=== PATIENT | female | born 1965 | race Caucasian/White ===

== ENCOUNTER 2021-05-14 14:58 | Outpatient (REF) | payer OTHER, SELFPAY ==
--- NOTE | ~2021-05-14 | MM_ITS ---
EXAMINATION: MM SCREENING DIGITAL BREAST TOMOSYNTHESIS, BILATERAL CLINICAL INFORMATION: Screening. Asymptomatic. The lifetime risk of breast cancer based on the Tyrer-Cuzick Model is 15%. COMPARISON: Mammography: 05/08/2020, 03/10/2019, 12/04/2017 TECHNIQUE: Digital breast tomosynthesis is performed in both the craniocaudal and mediolateral oblique views along with computer-aided detection (CAD). Synthesized 2D images are generated from the tomosynthesis. FINDINGS: The breasts are extremely dense, which lowers the sensitivity of mammography (ACR BI-RADS breast composition Category d). There are no significant masses, abnormal calcifications, or other abnormalities. No developing density. Skin contours are smooth. No significant changes. MM/MM tomosynthesis screening BI IMPRESSION: No mammographic evidence of malignancy. ASSESSMENT: BI-RADS 1: Negative RECOMMENDATION: Routine annual mammography screening. This patient's information was entered into a reminder system with a target due date for their next mammogram.
== END 2021-05-14 14:59 | disposition home or self-care (01) ==
LOC: HO.MAMMO 14:58
PROVIDERS: Visit Provider Internal Medicine
DX: Z12.31 Encounter for screening mammogram for malignant neoplasm of breast (principal)
CPT/HCPCS: 77063; 77067

== ENCOUNTER 2022-05-18 13:54 | Outpatient (REF) | payer OTHER, SELFPAY ==
--- NOTE | ~2022-05-18 | MM_ITS ---
EXAMINATION: MM SCREENING DIGITAL BREAST TOMOSYNTHESIS, BILATERAL CLINICAL INFORMATION: Screening. Asymptomatic. The lifetime risk of breast cancer based on the Tyrer-Cuzick Model is 11%. COMPARISON: Mammography: 05/14/2021, 05/08/2020, 03/10/2019 TECHNIQUE: Digital breast tomosynthesis is performed in both the craniocaudal and mediolateral oblique views along with computer-aided detection (CAD). Synthesized 2D images are generated from the tomosynthesis. FINDINGS: The breasts are extremely dense, which lowers the sensitivity of mammography (ACR BI-RADS breast composition Category d). There are no significant masses, abnormal calcifications, or other abnormalities. Parenchymal pattern is similar to prior studies. No significant changes. The axilla are unremarkable. MM/MM tomosynthesis screening BI IMPRESSION: No mammographic evidence of malignancy. ASSESSMENT: BI-RADS 1: Negative RECOMMENDATION: Routine annual mammography screening. This patient's information was entered into a reminder system with a target due date for their next mammogram.
== END 2022-05-18 13:55 | disposition home or self-care (01) ==
LOC: HO.MAMMO 13:54
PROVIDERS: Visit Provider Internal Medicine
DX: Z12.31 Encounter for screening mammogram for malignant neoplasm of breast (principal)
CPT/HCPCS: 77063; 77067

== ENCOUNTER 2022-08-25 08:23 | Outpatient (REF) | payer OTHER, SELFPAY ==
[2022-08-25 11:28] LABS: MANUAL DIFF FLAG NO
[2022-08-25 11:50] LABS: Basophils Absolute Auto 0.1 X10*3/uL (0.0-0.2); Basophils Percent Auto 1.4 % (0-2); Eosinophils Absolute Auto 0.3 X10*3/uL (0.0-0.4); Eosinophils Percent Auto 4.2 % (0-4); Hematocrit 44.3 % (37.0-47.0); Hemoglobin 14.5 g/dl (12.0-16.0); Imm Gran Abs Auto 0.02 X10*3/uL (0.00-0.03); Imm Gran Pct Auto 0.3 % (0.0-0.4); Lymphocytes Absolute Auto 2.4 X10*3/uL (1.2-4.9); Lymphocytes Percent Auto 34.6 % (20-40); Mean Corpuscular HGB Conc 32.7 g/dl (31.0-35.0); Mean Corpuscular Hemoglobin 29.7 pg (27.0-33.0); Mean Corpuscular Volume 90.6 fL (80.0-98.0); Mean Platelet Volume 12.1 fL (9.4-12.3); Monocytes Absolute Auto 0.7 X10*3/uL (0.1-1.2); Monocytes Percent Auto 10.1 % (2-11); Neutrophils Absolute Auto 3.4 x10*3/uL (2.0-8.3); Neutrophils Percent Auto 49.4 % (45-73); Platelet Count 202 X10*3/uL (160-400); Red Blood Count 4.89 X10*6/uL (4.20-5.50); Red Cell Distribution Width 12.5 % (11.0-16.0)
[2022-08-25 12:09] LABS: Alanine Aminotransferase 50 U/L (0-31); Albumin Level 4.2 g/dL (3.5-5.0); Alkaline Phosphatase 90 U/L (39-117); Anion Gap 14 (12-20); Aspartate Amino Transferase 29 U/L (5-31); Bilirubin Total 0.8 mg/dL (0.0-1.0); Blood Urea Nitrogen 14 mg/dL (9-16); Calcium 9.5 mg/dL (8.4-10.2); Carbon Dioxide 27 mmol/L (22-29); Chloride 104 mmol/L (96-108); Cholesterol 167 mg/dL; Estimated Glomerular Filt Rate > 60; Glucose Fasting 88 mg/dL (60-99); HDL Cholesterol 54 mg/dL; LDL Cholesterol Calculated 93 mg/dl; Potassium 4.1 mmol/L (3.3-5.1); Sodium 141 mmol/L (135-145); Total Protein 6.8 g/dL (6.5-8.0); Triglycerides 100 mg/dL
[2022-08-25 12:16] LABS: Appearance Urine Clear; Color Urine Yellow; Glucose Urine UA Negative (Negative); Leukocyte Esterase Urine Small (1+) (Negative); Nitrite Urine Negative (Negative); UMIC TRIGGER UA YES; Urine Blood Negative (Negative); Urine Ketones Negative (Negative); Urine Protein Negative (Neg-Trace)
[2022-08-25 12:27] LABS: Bacteria Urine None Seen (None Seen); Hyaline Casts Urine 0-2 /LPF (0-2); RBC Urine 0-2 /HPF (0-2); Squamous Epithelial Cell Urine 0-2 /HPF (0-2)
[2022-08-25 12:32] LABS: Vitamin D 25-OH Total 55.2 ng/mL (>30)
== END 2022-08-25 08:24 | disposition home or self-care (01) ==
LOC: HO.HMGCLDS 08:23
PROVIDERS: PCP Internal Medicine; Visit Provider Internal Medicine
DX: Z00.00 Encounter for general adult medical examination without abnormal findings (principal); Z78.0 Asymptomatic menopausal state
CPT/HCPCS: 36415; 80053; 80061; 81001; 82306; 84443; 85025

== ENCOUNTER 2022-09-01 11:57 | Outpatient (REF) | payer OTHER, SELFPAY ==
--- NOTE | ~2022-09-01 | XR_ITS ---
EXAMINATION: XR HIP, LEFT CLINICAL INFORMATION: M25.552 - Pain in left hip COMPARISON: None TECHNIQUE: Two views of the left hip. FINDINGS: No fracture, dislocation, destructive process. No hip joint narrowing or erosive change or chondrocalcinosis. Normal bony mineralization. There is minor spurring from the superior medial and superior lateral iliac crest. The SI joints and pubis are unremarkable. XR/XR hip LT min 2V IMPRESSION: No hip joint narrowing or erosive change.
== END 2022-09-01 11:58 | disposition home or self-care (01) ==
LOC: HO.HMGCX 11:57
PROVIDERS: PCP Internal Medicine; Visit Provider Internal Medicine
DX: M25.552 Pain in left hip (principal)
CPT/HCPCS: 73502

== ENCOUNTER 2022-10-13 10:00 | Outpatient (RCR) | payer OTHER, SELFPAY ==
--- NOTE | 2022-09-21 16:30 | MHC.PT.EP ---
[facility] [place] Office [place] Office [place] Office [address] Viral Turpin [address] [phone] F: [phone] F: [phone] F: [phone] F: [phone] Physical Therapy Plan of Care Date of Evaluation: Date of Surgery: N/A Diagnosis: pain in left hip (RC) Assessment: pt is a 57 y/o female presenting to physical therapy w/ referring diagnosis of pain in left hip. Impairments include pain, decreased range of motion, decreased strength, impaired functional mobility, impaired postural awareness, and altered ambulation mechanics. pt is a good candidate for skilled PT due to age, potential remediation of impairments, typical disease/condition progression and prognosis, comorbidities, and motivation. pt would benefit from skilled PT intervention to provide a tailored strengthening and stretching exercise program, functional training, gait training, postural re-training, neuromuscular re-education, modalities as needed for pain, equipment safety demonstration. Frequency and Duration: The patient will be seen 2x/wk for 4 wks Short Term Goals: pt will be I w/ HEP to promote self-management of condition. pt will improve L hip abduction strength by 1 MMT grade to promote neutral hips with transfers/ambulation. Fci Goals: pt will improve lumbar flexion to 100% to promote ease in lower body dressing. pt will report <2/10 L hip pain w/ w/ crossing leg to promote full return to donning/doffing socks/shoes. Treatment Plan: Modalities to reduce pain, spasms and effusion. Manual therapy to restore motion and function. Therapeutic exercise to improve strength and flexibility. Neuromuscular re-education for posture and balance. Therapeutic activities to return to functional activities of daily living. Electronically signed by: Rose Michaels PT, DPT Please sign and return to therapist. Thank you for your referral.
--- NOTE | 2022-11-04 16:50 | MHC.PT.DC ---
[facility] [place] Office [place] Office [place] Office [address] Viral Turpin [address] [phone] F: [phone] F: [phone] F: [phone] F: [phone] Physical Therapy Discharge Report Diagnosis: pain in left hip (RC) Date of Surgery: N/A Date of Evaluation: 09/21/22 Date of Discharge: 11/04/22 Treatments to Date: 4 Cancellations to Date: 0 No Shows to Date: 0 Discharge Status: Improved Function Independent with HEP Discharge Summary: pt stated she is still experiencing deficit in ROM. She denies pain just difficulty performing hip flexion, abduction, and external rotation combo. pt shown self-hip mobilizations as she has only progressed a little w/ stretching to this point. pt felt strong pulling sensation but no pain w/ mobilizations. She was instructed in proper band securement for safety. pt stated she would like to continue w/ these exercises on her own. This therapist will keep the her chart open for 2-3 weeks. If I do not hear from here in that time I will D/C her chart. Electronically signed by: Rose Michaels PT, DPT Please sign and return to therapist. Thank you for your referral.
== END 2022-11-04 16:50 | disposition home or self-care (01) ==
LOC: HO.PT 10:00
PROVIDERS: PCP Internal Medicine; Visit Provider Internal Medicine
DX: M25.552 Pain in left hip (principal)
CPT/HCPCS: 97110; 97112; 97162

== ENCOUNTER 2023-05-20 13:59 | Outpatient (REF) | payer OTHER, SELFPAY ==
--- NOTE | ~2023-05-20 | MM_ITS ---
EXAMINATION: MM SCREENING DIGITAL BREAST TOMOSYNTHESIS, BILATERAL CLINICAL INFORMATION: Screening. Asymptomatic. The lifetime risk of breast cancer based on the Tyrer-Cuzick Model is 15%. COMPARISON: Mammography: This study is compared with prior exams dating back to 2019. TECHNIQUE: Digital breast tomosynthesis is performed in both the craniocaudal and mediolateral oblique views along with computer-aided detection (CAD). Synthesized 2D images are generated from the tomosynthesis. FINDINGS: The breasts are heterogeneously dense, which may obscure small masses (ACR BI-RADS breast composition Category c). There are no significant masses, abnormal calcifications, or other abnormalities. MM/MM tomosynthesis screening BI IMPRESSION: No mammographic evidence of malignancy. ASSESSMENT: BI-RADS BI-RADS 1 - Negative RECOMMENDATION: Routine annual mammography screening. 1 year F/U This examination should not preclude the clinical evaluation of a suspicious palpable abnormality. This patient's information was entered into a reminder system with a target due date for their next mammogram.
== END 2023-05-20 14:00 | disposition home or self-care (01) ==
LOC: HO.MAMMO 13:59
PROVIDERS: PCP Internal Medicine; Visit Provider Obstetrics & Gynecology
DX: Z12.31 Encounter for screening mammogram for malignant neoplasm of breast (principal)
CPT/HCPCS: 77063; 77067

== ENCOUNTER → 2023-05-20 14:15 | Outpatient (BNV) | payer OTHER, SELFPAY | PROVIDERS: PCP Internal Medicine; Visit Provider Radiology Diagnostic Radiology | DX: Z12.31 Encounter for screening mammogram for malignant neoplasm of breast (principal) | CPT/HCPCS: 77063; 77067 ==

== ENCOUNTER 2023-09-02 10:18 | Outpatient (AMB) | payer OTHER, SELFPAY ==
[2023-09-02 10:21] VITALS: BP 112/64; PULSE 92; O2SAT 95; BMI 21.8
--- NOTE | 2023-09-02 10:21 | MHC.PC.OV ---
Vital Signs 09/02/23 10:21 Height 4 ft 11 in Weight 108 lb 2 oz BMI 21.8 BP 112/64 Blood Pressure Location Lt brachial Position Sitting Pulse 92 Pulse Source Pulse Oximeter Pulse Oximetry (%) 95 Oxygen Delivery Method Room Air Intake Visit Reasons: Annual PE Intake Note: pt is here for annual exam Deputy Grand Jury Required: No Accompanied by: Self / Same As Patient Allergies environmental Allergy (Mild, Uncoded 09/02/23 10:21) itchy, watery eyes Medication List - Last Reconciled 09/02/23 by Alia Salazar MD ascorbic acid (vitamin C) 250 mg PO DAILY calcium carbonate (Antacid Ultra Strength) 400 mg PO DAILY magnesium 250 mg PO DAILY multivitamin 1 tab PO DAILY rhubarb root extract (Estroven Complete Menopause Relief) mg PO vitamin B comp and C no.3 1 cap PO DAILY zinc 50 mg PO DAILY Tobacco use date assessed: 09/02/23 Dental Screening Dental Screen Date: 09/02/23 Did you have a dental visit in the last 12 months?: Yes Did you have a dental problem in the last 6 months where you did not have access to dental care?: No Was dental information given to patient?: Patient has dentist HPI Annual PE HPI Details Pt presents for PE. Pt c/o persistent nasal congestion for 3 weeks after URI. 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 1. Little interest or pleasure in doing things: not at all 2. Feeling down, depressed, or hopeless: not at all 3. Trouble falling or staying asleep, or sleeping too much: not at all 4. Feeling tired or having little energy: not at all 5. Poor appetite or overeating: not at all 6. Feeling bad about yourself - or that you are a failure or have let yourself or your family down: not at all 7. Trouble concentrating on things, such as reading the newspaper or watching television: not at all 8. Moving or speaking so slowly that other people could have noticed. Or the opposite - being so fidgety or restless that you have been moving around a lot more than usual: not at all 9. Thoughts that you would be better off or of hurting yourself in some way: not at all Total score: 0 Depression Screening Interpretation: Negative Depression Screening Done: Yes 16983 - PHQ-9 Billing: Yes Source: Developed by Drs. David Blue, Janay Rosas, Casa Poe and colleagues, with an educational radha from [employer]. Thrive Questionnaire Date Thrive assessed: 09/02/23 I am a: Patient What is your living situation today?: I have a steady place to live Within the past 12 months, did the food you bought not last and you didn't have the money to get more?: Never true Within the past 12 months, did you worry whether your food would run out before you got money to buy more?: Never true Do you have trouble paying for medicines?: No Do you have trouble getting transportation to medical appointments?: No Do you have trouble paying your heating and electricity bill?: No Do you have trouble taking care of your child, family member or friend?: No Do you have trouble with day-to-day activities such as bathing, preparing meals, shopping, managing finances, etc.?: No Are you currently unemployed and looking for a job?: No Are you interested in more education?: No Please select the resources that you would like help with: None Currently or been in a relationship where the following occur: no concerns reported SHAE-7 AMB Questionnaire SHAE-7 Date SHAE - 7 assessed: 09/02/23 Feeling nervous, anxious, or on edge: 0 = Not at all Not being able to stop or control worryin = Not at all Worrying too much about different things: 0 = Not at all Trouble relaxin = Not at all Being so restless that it is hard to sit still: 0 = Not at all Becoming easily annoyed or irritable: 0 = Not at all Feeling afraid as if something awful might happen: 0 = Not at all Total SHAE-7 score (0-4 normal; 5-9 mild; 10-14 moderate; 15-21 severe): 0 Source: Developed by Drs. David Blue, Janay Rosas, Casa Poe and colleagues, with an educational radha from [employer]. SHAE-7 Assessment Billing SHAE-7 Assessment Tool: SHAE-7 Assessment 85769 Review of Systems Const All systems reviewed & are unremarkable except as noted in HPI and below Reports no additional complaints Eyes Reports no additional complaints ENT Reports no additional complaints Card Reports no additional complaints Resp Reports no additional complaints GI Reports no additional complaints Reports no additional complaints Physical exam (Primary Care) Vital Signs: Last Vital Signs Pulse 92 09/02/23 10:21 BP 112/64 09/02/23 10:21 Pulse Ox 95 09/02/23 10:21 Oxygen Delivery Method Room Air 09/02/23 10:21 BMI result Body Mass Index 21.8 Tobacco/Smoking Status: Tobacco use Status Tobacco use date assessed 09/02/23 09/02/23 10:22 Patient Tobacco Use Status Never used Tobacco 09/02/23 10:22 e-Cigarette/Vaping Use Never Used 09/02/23 10:22 PHQ-9: PHQ-9 Score PHQ-9: Total score 0 09/02/23 15:07 Depression Screening Interpretation: Negative Thrive Assessment: Date of Thrive Assessment Date Thrive assessed 09/02/23 09/02/23 10:24 Currently or been in a relationship where the following occur: no concerns reported Const General: no acute distress HENMT Ears: hearing grossly normal bilaterally Face and sinus: Yes normal facial exam Mouth: Normal oral and palatal mucosa present Eyes General: appearance normal, both eyes and all related structures Resp Effort & Inspection: normal respiratory effort Auscultation: clear to auscultation bilaterally Cardio Rhythm: regular rhythm Heart sounds: S1 normal heart sound present and S2 normal heart sound present GI Inspection: Yes normal to inspection Palpation (GI): Soft to palpation Percussion: Yes normal to percussion Auscultation: normal bowel sounds Assessment and Plan Assessment & Plan (1) Annual physical exam: Code(s): Z00.00 - Encounter for general adult medical examination without abnormal findings Plan: well balanced diet, exercise, f/u with senior windows systems administrator for pelvic exam, started on HRT (2) Hx of mammogram: Comment: [facility] 2021 Code(s): Z92.89 - Personal history of other medical treatment (3) Hx of colonoscopy: Comment: normal at 50 Code(s): Z98.890 - Other specified postprocedural states Orders: Orders Lipid Panel Today Z00.00 - Encounter for general adult medical examination without abnormal findings, Z92.89 - Personal history of other medical treatment, Z98.890 - Other specified postprocedural states TSH reflex Free T4 Today Z00.00 - Encounter for general adult medical examination without abnormal findings, Z92.89 - Personal history of other medical treatment, Z98.890 - Other specified postprocedural states Complete Blood Count Auto Diff 365 Days Z00.00 - Encounter for general adult medical examination without abnormal findings Lipid Panel 365 Days Z00.00 - Encounter for general adult medical examination without abnormal findings TSH reflex Free T4 365 Days Z00.00 - Encounter for general adult medical examination without abnormal findings Comprehensive [place]. Panel Fast Today Z00.00 - Encounter for general adult medical examination without abnormal findings, Z92.89 - Personal history of other medical treatment, Z98.890 - Other specified postprocedural states Complete Blood Count Auto Diff Today Z00.00 - Encounter for general adult medical examination without abnormal findings, Z92.89 - Personal history of other medical treatment, Z98.890 - Other specified postprocedural states Comprehensive [place]. Panel Fast 365 Days Z00.00 - Encounter for general adult medical examination without abnormal findings Medications: New estradiol apply 1 patch for 3 days alternating with 1 patch for 4 days each week for 3 wks per 4-wk cycle 1 patch transdermal 2XW 8 ea 0RF Coding Level of Care Code Est Pt Prev Care 40-64y(90788) Diagnoses Annual physical exam Z00.00 Hx of mammogram Z92.89 Hx of colonoscopy Z98.890 Additional Codes SHAE-7 Assessment Billing - SHAE-7 Assessment Tool: SHAE-7 Assessment 36488 ([id number])
== END 2023-09-02 11:02 | disposition home or self-care (01) ==
PROVIDERS: Visit Provider Internal Medicine
DX: Z00.00 Encounter for general adult medical examination without abnormal findings (principal); Z92.89 Personal history of other medical treatment; Z98.890 Other specified postprocedural states
CPT/HCPCS: 99396

== ENCOUNTER 2023-09-06 09:01 | Outpatient (REF) | payer OTHER, SELFPAY ==
[2023-09-06 11:20] LABS: MANUAL DIFF FLAG NO
[2023-09-06 11:43] LABS: Basophils Absolute Auto 0.1 X10*3/uL (0.0-0.2); Basophils Percent Auto 1.6 % (0-2); Eosinophils Absolute Auto 0.4 X10*3/uL (0.0-0.4); Hematocrit 44.5 % (37.0-47.0); Hemoglobin 14.4 g/dl (12.0-16.0); Imm Gran Abs Auto 0.03 X10*3/uL (0.00-0.03); Imm Gran Pct Auto 0.4 % (0.0-0.4); Lymphocytes Absolute Auto 1.9 X10*3/uL (1.2-4.9); Lymphocytes Percent Auto 27.7 % (20-40); Mean Corpuscular HGB Conc 32.4 g/dl (31.0-35.0); Mean Corpuscular Hemoglobin 30.4 pg (27.0-33.0); Mean Corpuscular Volume 94.1 fL (80.0-98.0); Mean Platelet Volume 11.7 fL (9.4-12.3); Monocytes Absolute Auto 0.9 X10*3/uL (0.1-1.2); Monocytes Percent Auto 12.8 % (2-11); Neutrophils Absolute Auto 3.7 x10*3/uL (2.0-8.3); Neutrophils Percent Auto 52.5 % (45-73); Platelet Count 210 X10*3/uL (160-400); Red Blood Count 4.73 X10*6/uL (4.20-5.50); Red Cell Distribution Width 12.4 % (11.0-16.0)
[2023-09-06 12:20] LABS: Alanine Aminotransferase 19 U/L (0-31); Alkaline Phosphatase 76 U/L (39-117); Anion Gap 9 (12-20); Aspartate Amino Transferase 23 U/L (5-31); Bilirubin Total 0.9 mg/dL (0.0-1.0); Blood Urea Nitrogen 13 mg/dL (9-16); Calcium 8.9 mg/dL (8.4-10.2); Carbon Dioxide 29 mmol/L (22-29); Chloride 104 mmol/L (96-108); Cholesterol 152 mg/dL (<200); Estimated Glomerular Filt Rate > 60; Glucose Fasting 88 mg/dL (60-99); HDL Cholesterol 47 mg/dL (>40); LDL Cholesterol Calculated 87 mg/dL (<100); Potassium 4.3 mmol/L (3.3-5.1); Sodium 138 mmol/L (135-145); Total Protein 6.9 g/dL (6.5-8.0); Triglycerides 90 mg/dL (<150)
== END 2023-09-06 09:02 | disposition home or self-care (01) ==
LOC: HO.HMGCLDS 09:01
PROVIDERS: PCP Internal Medicine; Visit Provider Internal Medicine
DX: Z00.00 Encounter for general adult medical examination without abnormal findings (principal); Z92.89 Personal history of other medical treatment; Z98.890 Other specified postprocedural states
CPT/HCPCS: 36415; 80053; 80061; 84443; 85025

== ENCOUNTER 2023-09-07 11:32 | Outpatient (AMB) | payer OTHER, SELFPAY ==
[2023-09-07 12:48] VITALS: BP 108/62; PULSE 112; TEMP 38.1; O2SAT 97; BMI 21.8
--- NOTE | 2023-09-07 12:48 | MHC.OFFWIV ---
Intake Vital Signs 09/07/23 12:48 Height 4 ft 11 in Weight 108 lb BMI 21.8 BP 108/62 Blood Pressure Location Lt brachial Position Sitting Pulse 112 H Pulse Source Pulse Oximeter Temp 100.5 F H Temp Source Oral Pulse Oximetry (%) 97 Oxygen Delivery Method Room Air Intake Visit Reasons: EP, body aches, congestion (masked) Intake Note: Patient is here with symptoms of body aches, and congestion, with fever and chills. Patient Tobacco Use Status: Never used Tobacco Allergies environmental Allergy (Mild, Uncoded 09/07/23 13:48) itchy, watery eyes Do you need a note to return to daycare/school/sports/work: No HPI EP, body aches, congestion (masked) HPI Details Patient presents for a sick visit. Reporting symptoms of sinus congestion, sore throat and difficulty swallowing. Low-grade fever. No family member is sick. No recent travel. Patient reports symptoms of malaise and fatigue. 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 Housing: House Patient Tobacco Use Status: Never used Tobacco e-Cigarette/Vaping Use: Never Used Current occupational status: employed Cognitive needs: No Hearing needs: No Vision needs: Yes Physical Exam Vital Signs: Last Vital Signs Temp 100.5 F H 09/07/23 12:48 Pulse 112 H 09/07/23 12:48 BP 108/62 09/07/23 12:48 Pulse Ox 97 09/07/23 12:48 Oxygen Delivery Method Room Air 09/07/23 12:48 BMI result Body Mass Index 21.8 Const General: cooperative and healthy appearing Nutritional Appearance: well nourished Orientation/consciousness: patient oriented x3 Limitations: no limitations HEENT Head: Yes normal to inspection Eyes General: appearance normal, both eyes and all related structures Neck Neck: Yes normal visual inspection Chest Chest palpation & inspection: normal palpation of entire chest wall Resp Effort & Inspection: normal respiratory effort Neuro General: patient oriented x3 Results AMB Rapid Strep AMB Rapid Strep Negative Last Edit by Rachael Montgomery CMA on 09/07/23 13:38 Results Reviewed Results Reviewed: Laboratory Last Values Strep Scn Rapid Clinic Negative 09/07/23 13:36 Assessment & Plan Assessment & Plan (1) Upper respiratory tract infection: Code(s): J06.9 - Acute upper respiratory infection, unspecified Plan: Antibiotics ordered. Increase fluid intake. Tylenol for aches and pains. If symptoms worsen, follow-up here for a recheck. Orders: Orders AMB Rapid Strep Screen Today J02.9 - Acute pharyngitis, unspecified SARS-CoV2/FLU/RSV Today R09.89 - Other specified symptoms and signs involving the circulatory and respiratory systems Coding Level of Care Code Est Pt Level 3 (75819) Diagnoses Upper respiratory tract infection J06.9
== END 2023-09-07 13:57 | disposition home or self-care (01) ==
PROVIDERS: PCP Internal Medicine; Visit Provider Internal Medicine
DX: J06.9 Acute upper respiratory infection, unspecified (principal); J02.9 Acute pharyngitis, unspecified
CPT/HCPCS: 87880; 99213

== ENCOUNTER 2023-09-07 13:49 | Outpatient (REF) | payer OTHER, SELFPAY ==
[2023-09-07 17:11] LABS: Influenza A PCR NEGATIVE (Negative); Influenza B PCR NEGATIVE (Negative); Resp Syncy Virus RNA Qual PCR NEGATIVE (Negative); SARS COV2 PCR INHOUSE POSITIVE (Negative)
== END 2023-09-07 13:50 | disposition home or self-care (01) ==
LOC: HO.LNP 13:49
PROVIDERS: Visit Provider Internal Medicine
DX: Z11.52 Encounter for screening for COVID-19 (principal); Z20.822 Contact with and (suspected) exposure to COVID-19; R09.89 Other specified symptoms and signs involving the circulatory and respiratory systems
CPT/HCPCS: 0241U

== ENCOUNTER 2023-12-15 08:11 | Outpatient (AMB) | payer OTHER, SELFPAY ==
[2023-12-15 08:46] VITALS: BP 110/70; PULSE 94; TEMP 36.7; O2SAT 97; BMI 22.2
--- NOTE | 2023-12-15 08:46 | AM.OFFWIN_ITS ---
Intake Vital Signs 12/15/23 08:46 Height 4 ft 11 in Weight 110 lb BMI 22.2 BP 110/70 Blood Pressure Location Lt brachial Position Sitting Pulse 94 Pulse Source Pulse Oximeter Temp 98.0 F Temp Source Temporal Artery Scan Pulse Oximetry (%) 97 Oxygen Delivery Method Room Air Intake Visit Reasons: EST/righ hand swelling (lobby) Intake Note: pt is here today for rt hand swelling started 1 week ago Patient Tobacco Use Status: Never used Tobacco Allergies environmental allergies Allergy (Mild, Verified 12/15/23 08:47) Itchy watery eyes Do you need a note to return to daycare/school/sports/work: No HPI HPI Comments History of Present Illness Details 58 y/o female patient who presents to [facility] in clinic with c/o right hand swelling x 1 week. She reports that few days ago she was cleaning her Cat's litter box and cut her middle finger, with some bleeding. Denies systemic symptoms. Denies pain, and hand and fingers feel heavy and tight. She has been taking Ibuprofen with minimal relief. 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 Housing: House Patient Tobacco Use Status: Never used Tobacco e-Cigarette/Vaping Use: Never Used Current occupational status: employed Cognitive needs: No Hearing needs: No Vision needs: Yes Review of Systems Const All systems reviewed & are unremarkable except as noted in HPI and below Physical Exam Vital Signs: Last Vital Signs Temp 98.0 F 12/15/23 08:46 Pulse 94 12/15/23 08:46 BP 110/70 12/15/23 08:46 Pulse Ox 97 12/15/23 08:46 Oxygen Delivery Method Room Air 12/15/23 08:46 BMI result Body Mass Index 22.2 Const Orientation/consciousness: patient oriented x3 Neuro General: patient oriented x3 Gait exam (Neuro): Normal gait present Extrem Right upper extremity: Extremity exam: right hand Details: swelling (small cut on right hand middle finger, redness and puffy fingers) Location: of the dorsal hand Left upper extremity: normal to inspection and hand Details: normal to inspection, normal capillary refill, neuromotor exam normal, neurosensory exam normal and no swelling Psych Speech and movement: Clear speech present Assessment & Plan Assessment & Plan (1) Cellulitis of finger of right hand: Code(s): L03.011 - Cellulitis of right finger Plan: - Cellulites middle finger right hand - Ibuprofen for pain relief. - RTC if not better. Medications: New cephalexin 250 mg PO BID 7 days 14 caps 0RF Coding Level of Care Code Est Pt Level 3 (46564) Diagnoses Cellulitis of finger of right hand L03.011 Time Spent (min) 15
== END 2023-12-15 10:20 | disposition home or self-care (01) ==
PROVIDERS: PCP Internal Medicine; Visit Provider Nurse Practitioner Family
DX: L03.011 Cellulitis of right finger (principal)
CPT/HCPCS: 99213

== ENCOUNTER 2023-12-20 14:22 | Outpatient (AMB) | payer OTHER, SELFPAY ==
[2023-12-20 14:24] VITALS: BP 120/70; PULSE 87; TEMP 37.1; O2SAT 99; BMI 22.0
--- NOTE | 2023-12-20 14:24 | AM.OFFWIN_ITS ---
Intake Vital Signs 12/20/23 14:24 Height 4 ft 11 in Weight 109 lb BMI 22.0 BP 120/70 Blood Pressure Location Lt brachial Position Sitting Pulse 87 Pulse Source Pulse Oximeter Temp 98.7 F Temp Source Temporal Artery Scan Pulse Oximetry (%) 99 Oxygen Delivery Method Room Air Intake Visit Reasons: EST/right hand swelling (lobby) Intake Note: pt is here today for rt hand swelling started 1 week ago Patient Tobacco Use Status: Never used Tobacco Allergies environmental allergies Allergy (Mild, Verified 12/20/23 14:24) Itchy watery eyes Medication List - Last Reconciled 12/20/23 by DAYO Best ascorbic acid (vitamin C) 250 mg PO DAILY calcium carbonate (Antacid Ultra Strength) 400 mg PO DAILY cephalexin 250 mg PO BID 7 days estradiol 1 patch transdermal 2XW magnesium 250 mg PO DAILY multivitamin 1 tab PO DAILY prednisone 10 mg PO DIRECTED progesterone micronized 100 mg PO BEDTIME rhubarb root extract (Estroven Complete Menopause Relief) mg PO vitamin B comp and C no.3 1 cap PO DAILY Do you need a note to return to daycare/school/sports/work: No HPI HPI Comments History of Present Illness Details 58-year-old female complaining of mild e nima of the right hand. She was here last week and put on antibiotics for cellulitis but it did not resolve. She denies any numbness tingling or paresthesias in her right hand. She did relate that she has started doing pushups within the last 2 weeks which is just prior to the onset of the symptoms denies any particular injury trauma or fall to the area has had no injury to her baby brachial plexus or clavicular damage on that side. 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 There were no axillary lymph) Details: normal capillary refill, neurosensory exam normal and abnormal ROM of finger (Range of motion of the hand is slightly diminished due to mild edema) Assessment & Plan Assessment & Plan (1) Swelling of right hand: Code(s): M79.89 - Other specified soft tissue disorders Plan: The patient will discontinue her pushups and use push up worse instead of floor. Follow up with her PCP, she may need to be evaluated for carpal tunnel syndrome if the symptoms continue Plan See plan Medications: New prednisone Take 3 tabs for 3 days, then 2 tabs for 3 days, then 1 tab for 3 days 10 mg PO DIRECTED 20 tabs 0RF Coding Level of Care Code Est Pt Level 3 (96196) Diagnoses Swelling of right hand M79.89
== END 2023-12-20 16:01 | disposition home or self-care (01) ==
PROVIDERS: PCP Internal Medicine; Visit Provider Physician Assistant Medical
DX: M79.89 Other specified soft tissue disorders (principal)
CPT/HCPCS: 99213

== ENCOUNTER 2024-05-25 15:12 | Outpatient (REF) | payer OTHER, SELFPAY ==
--- NOTE | ~2024-05-25 | MM_ITS ---
EXAMINATION: MM SCREENING DIGITAL BREAST TOMOSYNTHESIS, BILATERAL CLINICAL INFORMATION: Screening. Asymptomatic. COMPARISON: Mammography: This study is compared with prior exams dating back to 2019. TECHNIQUE: Digital breast tomosynthesis is performed in both the craniocaudal and mediolateral oblique views along with computer-aided detection (CAD). Direct 2-D images of each breast in the standard screening projections are also obtained. FINDINGS: The breasts are extremely dense, which lowers the sensitivity of mammography (ACR BI-RADS breast composition Category d). There are no significant masses, abnormal calcifications, or other abnormalities. MM/MM tomosynthesis screening BI IMPRESSION: No mammographic evidence of malignancy. ASSESSMENT: BI-RADS BI-RADS 1 - Negative RECOMMENDATION: Routine annual mammography screening. 1 year F/U This examination should not preclude the clinical evaluation of a suspicious palpable abnormality. This patient's information was entered into a reminder system with a target due date for their next mammogram. Electronically signed by: Diana Spence MD 06/22/2024 12:07 PM EDT
== END 2024-05-25 15:13 | disposition home or self-care (01) ==
LOC: HO.MAMMO 15:12
PROVIDERS: PCP Internal Medicine; Visit Provider Internal Medicine
DX: Z12.31 Encounter for screening mammogram for malignant neoplasm of breast (principal)
CPT/HCPCS: 77063; 77067

== ENCOUNTER → 2024-05-25 15:30 | Outpatient (BNV) | payer OTHER, SELFPAY | PROVIDERS: PCP Internal Medicine; Visit Provider Radiology Diagnostic Radiology | DX: Z12.31 Encounter for screening mammogram for malignant neoplasm of breast (principal) | CPT/HCPCS: 77063; 77067 ==

== ENCOUNTER 2024-09-22 08:27 | Outpatient (REF) | payer OTHER, SELFPAY ==
[2024-09-22 10:10] LABS: MANUAL DIFF FLAG NO
[2024-09-22 10:15] LABS: Basophils Absolute Auto 0.1 X10*3/uL (0.0-0.2); Basophils Percent Auto 1.3 % (0-2); Eosinophils Absolute Auto 0.2 X10*3/uL (0.0-0.4); Eosinophils Percent Auto 2.2 % (0-4); Hematocrit 44.3 % (37.0-47.0); Hemoglobin 14.8 g/dl (12.0-16.0); Imm Gran Abs Auto 0.04 X10*3/uL (0.00-0.03); Imm Gran Pct Auto 0.6 % (0.0-0.4); Lymphocytes Absolute Auto 1.9 X10*3/uL (1.2-4.9); Lymphocytes Percent Auto 27.1 % (20-40); Mean Corpuscular HGB Conc 33.4 g/dl (31.0-35.0); Mean Corpuscular Hemoglobin 30.8 pg (27.0-33.0); Mean Corpuscular Volume 92.3 fL (80.0-98.0); Mean Platelet Volume 11.5 fL (9.4-12.3); Neutrophils Absolute Auto 3.9 x10*3/uL (2.0-8.3); Neutrophils Percent Auto 54.8 % (45-73); Platelet Count 180 X10*3/uL (160-400); White Blood Count 7.2 X10*3/uL (4.8-10.8)
[2024-09-22 10:59] LABS: Alanine Aminotransferase 24 U/L (0-31); Alkaline Phosphatase 62 U/L (39-117); Anion Gap 10 (12-20); Aspartate Amino Transferase 28 U/L (5-31); Bilirubin Total 0.9 mg/dL (0.0-1.0); Blood Urea Nitrogen 15 mg/dL (9-16); Calcium 9.3 mg/dL (8.4-10.2); Carbon Dioxide 29 mmol/L (22-29); Chloride 106 mmol/L (96-108); Cholesterol 146 mg/dL (<200); Estimated Glomerular Filt Rate > 60; Glucose Fasting 88 mg/dL (60-99); HDL Cholesterol 44 mg/dL (>40); LDL Cholesterol Calculated 86 mg/dL (<100); Potassium 3.8 mmol/L (3.3-5.1); Sodium 141 mmol/L (135-145); Total Protein 6.7 g/dL (6.5-8.0); Triglycerides 84 mg/dL (<150)
[2024-09-22 11:05] LABS: TSH reflex Free T4 1.26 uIU/mL (0.32-4.0)
== END 2024-09-22 08:28 | disposition home or self-care (01) ==
LOC: HO.HMGCLDS 08:27
PROVIDERS: PCP Internal Medicine; Visit Provider Internal Medicine
DX: Z00.00 Encounter for general adult medical examination without abnormal findings (principal)
CPT/HCPCS: 36415; 80053; 80061; 84443; 85025

== ENCOUNTER 2024-09-29 11:19 | Outpatient (AMB) | payer OTHER, SELFPAY ==
[2024-09-29 11:25] VITALS: BP 118/76; PULSE 85; O2SAT 98; BMI 21.6
--- NOTE | 2024-09-29 11:25 | A.OFFPC_ITS ---
Vital Signs 09/29/24 11:25 Height 4 ft 11 in Weight 107 lb BMI 21.6 BP 118/76 Blood Pressure Location Rt brachial Position Sitting Pulse 85 Pulse Source Pulse Oximeter Pulse Oximetry (%) 98 Oxygen Delivery Method Room Air Intake Visit Reasons: Annual PE Intake Note: Pt is here today for PE. Allergies environmental allergies Allergy (Mild, Verified 09/29/24 11:27) Itchy watery eyes Medication List - Last Reconciled 09/29/24 by Alia Salazar MD ascorbic acid (vitamin C) 250 mg PO DAILY calcium carbonate (Antacid Ultra Strength) 400 mg PO DAILY estradiol 1 patch transdermal 2XW magnesium 250 mg PO DAILY multivitamin 1 tab PO DAILY progesterone micronized 100 mg PO BEDTIME rhubarb root extract (Estroven Complete Menopause Relief) mg PO vitamin B comp and C no.3 1 cap PO DAILY Tobacco use date assessed: 09/29/24 Dental Screening Dental Screen Date: 09/29/24 Did you have a dental visit in the last 12 months?: Yes Did you have a dental problem in the last 6 months where you did not have access to dental care?: No Was dental information given to patient?: Patient has dentist HPI Annual PE HPI Details Pt presents for PE. 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 1. Little interest or pleasure in doing things: not at all 2. Feeling down, depressed, or hopeless: not at all 3. Trouble falling or staying asleep, or sleeping too much: not at all 4. Feeling tired or having little energy: not at all 5. Poor appetite or overeating: not at all 6. Feeling bad about yourself - or that you are a failure or have let yourself or your family down: not at all 7. Trouble concentrating on things, such as reading the newspaper or watching television: not at all 8. Moving or speaking so slowly that other people could have noticed. Or the opposite - being so fidgety or restless that you have been moving around a lot more than usual: not at all 9. Thoughts that you would be better off or of hurting yourself in some way: not at all Total score: 0 Depression Screening Interpretation: Negative Depression Screening Done: Yes 14385 - PHQ-9 Billing: Yes Source: Developed by Drs. David Blue, Janay Rosas, Casa Poe and colleagues, with an educational radha from [employer]. Thrive Questionnaire Date Thrive assessed: 09/22/24 I am a: Patient What is your living situation today?: I have a steady place to live Within the past 12 months, did the food you bought not last and you didn't have the money to get more?: Never true Within the past 12 months, did you worry whether your food would run out before you got money to buy more?: Never true Do you have trouble paying for medicines?: No Do you have trouble getting transportation to medical appointments?: No Do you have trouble paying your heating and electricity bill?: No Do you have trouble taking care of your child, family member or friend?: No Do you have trouble with day-to-day activities such as bathing, preparing meals, shopping, managing finances, etc.?: No Are you currently unemployed and looking for a job?: No Are you interested in more education?: No Please select the resources that you would like help with: None Currently or been in a relationship where the following occur: No concerns reported THRIVE Score: 0 AUDIT C Alcohol Use Questionnaire (AUDIT-C) 1. How often do you have a drink containing alcohol?: Never 3. How often do you have six or more drinks on one occasion?: Never Total Score: 0 SHAE-7 AMB Questionnaire SHAE-7 Date SHAE - 7 assessed: 09/02/23 Feeling nervous, anxious, or on edge: 0 = Not at all Not being able to stop or control worryin = Not at all Worrying too much about different things: 0 = Not at all Trouble relaxin = Several days Being so restless that it is hard to sit still: 1 = Several days Becoming easily annoyed or irritable: 0 = Not at all Feeling afraid as if something awful might happen: 0 = Not at all Total SHAE-7 score (0-4 normal; 5-9 mild; 10-14 moderate; 15-21 severe): 2 Source: Developed by Drs. David Blue, Janay Rosas, Casa Poe and colleagues, with an educational radha from [employer]. Review of Systems Const All systems reviewed & are unremarkable except as noted in HPI and below Eyes Reports no additional complaints ENT Reports no additional complaints Card Reports no additional complaints Resp Reports no additional complaints GI Reports no additional complaints Reports no additional complaints Physical exam (Primary Care) Vital Signs: Last Vital Signs Pulse 85 09/29/24 11:25 BP 118/76 09/29/24 11:25 Pulse Ox 98 09/29/24 11:25 Oxygen Delivery Method Room Air 09/29/24 11:25 BMI result Body Mass Index 21.6 Tobacco/Smoking Status: Tobacco use Status Tobacco use date assessed 09/29/24 09/29/24 11:30 Patient Tobacco Use Status Never used Tobacco 09/29/24 11:30 e-Cigarette/Vaping Use Never Used 09/29/24 11:30 PHQ-9: PHQ-9 Score PHQ-9: Total score 0 09/29/24 11:30 Depression Screening Interpretation: Negative Thrive Assessment: Date of Thrive Assessment Date Thrive assessed 09/22/24 09/29/24 11:30 Currently or been in a relationship where the following occur: No concerns reported Const General: no acute distress HENMT Head: Yes normal to inspection Throat: Yes posterior oropharynx normal Eyes General: appearance normal, both eyes and all related structures Resp Effort & Inspection: normal respiratory effort Auscultation: clear to auscultation bilaterally Cardio Rhythm: regular rhythm Heart sounds: S1 normal heart sound present and S2 normal heart sound present GI Inspection: Yes normal to inspection Palpation (GI): Soft to palpation Percussion: Yes normal to percussion Auscultation: normal bowel sounds Coding Level of Care Code Est Pt Prev Care 40-64y(70611) Diagnoses Annual physical exam Z00.00 Postmenopausal Z78.0 Goiter E04.9 Additional Codes PHQ-9 - 55358 - PHQ-9 Billing: Yes ([id number]) Assessment & Plan Assessment & Plan (1) Annual physical exam: Code(s): Z00.00 - Encounter for general adult medical examination without abnormal findings Category: Medical Plan: Well-balanced diet regular physical activity discussed with the patient. She will be referred to GI for repeat colonoscopy and is up-to-date with mammogram (2) Postmenopausal: Code(s): Z78.0 - Asymptomatic menopausal state Category: Medical Plan: Check DEXA (3) Goiter: Comment: had bx many yrs ago Code(s): E04.9 - Nontoxic goiter, unspecified Category: Medical Plan: OBTAIN THYROID ULTRASOUND Orders: Orders XR DEXA axial skeleton Today Z78.0 - Asymptomatic menopausal state Comprehensive [place]. Panel Fast 1 Year E04.9 - Nontoxic goiter, unspecified, Z00.00 - Encounter for general adult medical examination without abnormal findings, Z78.0 - Asymptomatic menopausal state Complete Blood Count Auto Diff 1 Year E04.9 - Nontoxic goiter, unspecified, Z00.00 - Encounter for general adult medical examination without abnormal findings, Z78.0 - Asymptomatic menopausal state TSH reflex Free T4 1 Year E04.9 - Nontoxic goiter, unspecified, Z00.00 - Encounter for general adult medical examination without abnormal findings, Z78.0 - Asymptomatic menopausal state Vitamin D 25-OH Total 1 Year E04.9 - Nontoxic goiter, unspecified, Z00.00 - Encounter for general adult medical examination without abnormal findings, Z78.0 - Asymptomatic menopausal state US thyroid Today E04.9 - Nontoxic goiter, unspecified Lipid Panel 1 Year E04.9 - Nontoxic goiter, unspecified, Z00.00 - Encounter for general adult medical examination without abnormal findings, Z78.0 - Asymptomatic menopausal state Referrals Gastroenterology Referral Z78.0 - Asymptomatic menopausal state
== END 2024-09-29 12:13 | disposition home or self-care (01) ==
PROVIDERS: PCP Internal Medicine; Visit Provider Internal Medicine
DX: Z00.00 Encounter for general adult medical examination without abnormal findings (principal); Z78.0 Asymptomatic menopausal state; E04.9 Nontoxic goiter, unspecified

== ENCOUNTER → 2024-09-29 11:19 | Outpatient (BNVA) | payer OTHER, SELFPAY | PROVIDERS: PCP Internal Medicine; Visit Provider Internal Medicine | DX: Z00.00 Encounter for general adult medical examination without abnormal findings (principal); Z78.0 Asymptomatic menopausal state; E04.9 Nontoxic goiter, unspecified | CPT/HCPCS: 96127 ==

== ENCOUNTER 2024-10-05 10:21 | Outpatient (REF) | payer OTHER, SELFPAY | END 2024-10-05 10:22 | disposition home or self-care (01) | LOC: HO.HMGCX 10:21 | PROVIDERS: PCP Internal Medicine; Visit Provider Internal Medicine | DX: E04.9 Nontoxic goiter, unspecified (principal) | CPT/HCPCS: 76536 ==

== ENCOUNTER 2024-11-08 11:13 | Outpatient (REF) | payer OTHER, SELFPAY ==
--- NOTE | ~2024-11-08 | MM_ITS ---
EXAMINATION: DXA BONE DENSITY AXIAL HISTORY: Estrogen deficiency TECHNIQUE: [employer] Dual energy absorptiometry (DEXA) of the lumbar spine, total left hip, and femoral neck was performed. COMPARISON: There are no prior studies for comparison. FINDINGS: The bone mineral density of the lumbar spine is 1.545 with a T-score of 3.0, and a Z-score of 4.8. The bone mineral density of the left total hip is 1.036 with a T-score of 0.2, and a Z-score of 1.5. The bone mineral density of the left femoral neck is 1.048 with a T-score of 0.1, and a Z-score of 1.7. MM/XR DEXA axial skeleton IMPRESSION: Based on bone mineral density, and according to World Health Organization (WHO) criteria, the diagnosis is consistent with normal bone mineral density. All bone density values are in grams per centimeter squared (g/cm2). Statistically, 68% of repeat scans fall within 1 SD (+/- 0.010 g/cm2 for AP spine L1-L4) and 1 SD (+/- 0.012 g/cm2 for femur total) FRAX is a trademark of the [employer]'s [employer] Met[employer], a World Health Organization (WHO) Collaborating Center. Electronically signed by: David Hernández MD 11/09/2024 07:17 AM [facility]
== END 2024-11-08 11:14 | disposition home or self-care (01) ==
LOC: HO.MAMMO 11:13
PROVIDERS: PCP Internal Medicine; Visit Provider Internal Medicine
DX: Z13.820 Encounter for screening for osteoporosis (principal); Z78.0 Asymptomatic menopausal state
CPT/HCPCS: 77080

== ENCOUNTER → 2024-11-08 11:30 | Outpatient (BNV) | payer OTHER, SELFPAY | PROVIDERS: PCP Internal Medicine; Visit Provider Radiology Diagnostic Radiology | DX: E28.39 Other primary ovarian failure (principal) | CPT/HCPCS: 77080 ==

== ENCOUNTER 2024-12-14 09:47 | Outpatient (AMB) | payer OTHER, SELFPAY ==
[2024-12-14 10:11] VITALS: BP 100/70; PULSE 74; O2SAT 96; BMI 21.9
--- NOTE | 2024-12-14 10:11 | MHC.OFFVIS ---
Vital Signs 12/14/24 10:11 Height 4 ft 11 in Weight 108 lb 7.479 oz BMI 21.9 BP 100/70 Blood Pressure Location Lt brachial Position Sitting Pulse 74 Pulse Source Pulse Oximeter Pulse Oximetry (%) 96 Oxygen Delivery Method Room Air Intake Visit Reasons: Nontoxic single thyroid nodule Intake Note: New patient present today for Nontoxic single thyroid nodule. Kitchen Cleaner Required: No Accompanied by: Self / Same As Patient Allergies environmental allergies Allergy (Mild, Verified 12/14/24 10:15) Itchy watery eyes Medication List - Last Reconciled 12/14/24 by Lor Singer MD ascorbic acid (vitamin C) 250 mg PO DAILY calcium carbonate (Antacid Ultra Strength) 400 mg PO DAILY estradiol 1 patch transdermal 2XW magnesium 250 mg PO DAILY multivitamin 1 tab PO DAILY progesterone micronized 100 mg PO BEDTIME rhubarb root extract (Estroven Complete Menopause Relief) mg PO vitamin B comp and C no.3 1 cap PO DAILY HPI Comments Details: 59-year-old female here today for initial evaluation of large right thyroid nodule. Diagnosed when she was in her 40s she thinks. Was seeing an hang gliding instructor at [facility] 10 years ago. Had biopsy once , maybe 10 years ago , thinks it was benign. Ultrasound of the thyroid from September 2024 I reviewed the images myself, which showed a large asymmetrical right thyroid lobe, with a large right midpole 6 cm nodule which is solid, isoechoic, with a extrathyroidal extension and microcalcifications, TR 5 category. Per MAKEDA guidelines this is a highly suspicious nodule with greater than 50% chance of malignancy. Normal TSH from September 2024 at 1.26. Patient currently denies heat or cold intolerance, diarrhea or constipation, hair loss, palpitation, anxiety, weight changes, mood changes, low energy, changes in appearance of eyes or vision changes, tremors, increased diaphoresis or dry skin. ? Patient denies any difficulty swallowing, pain on swallowing or voice changes or difficulty breathing. Patient denies any history of childhood neck radiation. Denies having ever used lithium, amiodarone or biotin supplements. Patient denies any family history of thyroid cancer or thyroid disease. Physical exam General: sitting comfortably in no acute distress HEENT: normocephalic/atraumatic, Neck: supple, palpable 3 cm right-sided nodule Cardiac: normal heart sounds Pulm: normal breath sounds B/L, no added breath sounds Abd: not distended, no tenderness Extremities: no edema, no signs of myxedema Laboratory Tests 09/06/23 09/22/24 09:20 08:31 TSH 1.10 1.26 US THYROID 10/05/24 CLINICAL INFORMATION: Nontoxic goiter, unspecified. COMPARISON: None available. TECHNIQUE: Linear transducer grayscale and color Doppler examination with attention to the region of the thyroid. FINDINGS: SIZE: Measurements of the thyroid lobes and nodules are given in sagittal, anteroposterior and transverse dimensions respectively. Right Thyroid Lobe: 7.5 x 4.2 x 4.5 cm, volume 74.2 mL. Parenchyma: The gland echotexture is heterogeneous. Thyroid vascularity is increased. Left Thyroid Lobe: 4.6 x 1.2 x 1.2 cm, volume 35 mL. Parenchyma: The gland echotexture is homogeneous. Thyroid vascularity is increased. Isthmus: 0.1 cm in maximum AP dimension. Estimated total number of nodules greater than or equal to 1 cm: 1. Barrel Assembler nodules are described as follows: 1. Location: Right mid pole. Size: 6.0 x 4.1 x 5.1 cm, volume 65.4 mL. Nodule characteristics: Composition: Solid/almost completely solid (2). Echogenicity: Isoechoic (1). Shape: Not taller than wide (0). Margins: Extrathyroidal extension (3). Echogenic Foci: Macrocalcifications (1). Punctate echogenic foci (3). ACR TI-RADS total points: 10 ACR TI-RADS category: 5 NODES: No lymphadenopathy is seen in the tissue surrounding the thyroid gland. IMPRESSION: 1. A 6.0 cm RIGHT TR 5 thyroid nodule meets criteria for biopsy. Fine-needle aspiration recommended. 2. Diffusely hypervascular, enlarged thyroid gland. 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 Housing: House Patient Tobacco Use Status: Never used Tobacco e-Cigarette/Vaping Use: Never Used service: No Current occupational status: employed Cognitive needs: No Hearing needs: No Vision needs: Yes Physical Exam Vital Signs: Last Vital Signs Pulse 74 12/14/24 10:11 BP 100/70 12/14/24 10:11 Pulse Ox 96 12/14/24 10:11 Oxygen Delivery Method Room Air 12/14/24 10:11 BMI result Body Mass Index 21.9 Assessment & Plan Assessment & Plan (1) Thyroid nodule: Code(s): E04.1 - Nontoxic single thyroid nodule Category: Medical Plan: 59-year-old female with no family history of thyroid cancer, with no personal history of head or neck radiation who is coming in today for initial evaluation of right-sided thyroid nodule. Diagnosed when she was in her 40s she thinks. Was seeing an hang gliding instructor at [facility] 10 years ago. Had biopsy once , maybe 10 years ago , thinks it was benign. We would not be able to obtain these records given they were paper charts per patient. Ultrasound of the thyroid from September 2024 showed a large asymmetrical right thyroid lobe, with a large right midpole 6 cm nodule which is solid, isoechoic, with a extrathyroidal extension and microcalcifications, TR 5 category. Per MAKEDA guidelines this is a highly suspicious nodule with greater than 50% chance of malignancy. Normal TSH from September 2024 at 1.26. I explained that it is common to have thyroid nodules. About 95% of the time these nodules are benign. However if the nodule is > 1 cm in size or suspicious on ultrasound then a fine need aspiration biopsy is recommended. We discussed that a FNAB involves 4-5 passes with a small gauge needle and material obtained is sent off for cytology.If the cytopathology is benign then the nodule will be followed annually with repeat ultrasounds. However if it is suspicious or malignant, we will need to discuss further management. Indeterminate cytology can be further investigated with repeat FNA, genetic testing or empiric lobectomy. Malignant cytology is managed with either lobectomy or total thyroidectomy. We discussed briefly that thyroid cancer is, in most patients, an indolent disease that does not affect mortality. I also did discuss with the patient that when nodules are greater than 4 cm in size, because we can not capture cells from all parts of the nodule, the yield of a benign results suggesting low risk of malignancy goes down somewhat. I discussed with her that 1 potential option is to suggest lobectomy/total thyroidectomy given the large size of the nodule. She agrees that she does not have any compressive symptoms, and from what she remembers her surveillance ultrasounds only suggested minimal increase in the size of this nodule for the past 20 years, which are all reassuring and at this point she would like to proceed with the biopsy. We will arrange for FNA of the right mid lobe 6 cm nodule at next available opening and patient will follow up with me in clinic thereafter for results and further decision making. Plan: -scheduled for FNA of the right mid lobe 6 cm thyroid nodule and a follow up 2 weeks after to discuss results Patient was informed and verbally consented to the use of an ambient scribe for clinic note documentation during this visit. Plan I spent 45 minutes in reviewing the record, seeing the patient and documenting in the medical record. Orders: Orders US biopsy thyroid Today E04.1 - Nontoxic single thyroid nodule Coding Level of Care Code New Pt Level 4 (77555) Diagnoses Thyroid nodule E04.1 Time Spent (min) 45
== END 2024-12-14 10:44 | disposition home or self-care (01) ==
PROVIDERS: PCP Internal Medicine; Visit Provider Student in an Organized Health Care Education/Training Program
DX: E04.1 Nontoxic single thyroid nodule (principal)
CPT/HCPCS: 99204

== ENCOUNTER 2024-12-27 08:48 | Outpatient (REF) | payer OTHER, SELFPAY ==
--- NOTE | 2024-12-27 09:30 | PM.PROC ---
Brief Operative Note Date of procedure: 12/27/24 Pre-op diagnosis: right mid 6 cm thyroid nodule FNA biopsy Post-op diagnosis: same Procedure: THYROID FINE NEEDLE ASPIRATION PROCEDURE NOTE ? PROCEDURE PERFORMED: Ultrasound-guided FNA of thyroid nodule ? OPERATORS: Dr. Lor Singer ? INDICATION: right mid 6 cm thyroid nodule ; FNA performed to assess for malignancy ? DESCRIPTION OF PROCEDURE: The indications for FNA (to assess for malignancy) were reviewed with the patient in detail. Potential complications (e.g., bleeding, infection, damage to local structures, absence of clear diagnosis after FNA) were reviewed. Alternatives to FNA including conservative observation or surgery were described. The patient understood and agreed to proceed. This was documented by the signing of the written informed consent form. A time-out was performed to confirm the patient's identity and the site of planned FNA. The nodule of interest was identified using ultrasound (14 MHz linear array probe). The site of FNA was then draped in the usual fashion and carefully cleaned and prepared using alcohol swabs. The skin at the previously-identified site of needle insertion was iced and sprayed with numbing spray. Under ultrasound guidance, _5_ passes were performed using a 1.5-inch, 25-gauge needle, and sample was obtained via capillary action. The needle tip was clearly visualized to be within the nodule at the time of sampling for _5_ of _5_ passes [Insert image recorded as part of the procedure] The patient tolerated the procedure well. There were no immediate complications. A small adhesive bandage was applied, and the patient was advised to take acetaminophen (rather than NSAIDs) for any discomfort and to report any signs of inflammation/infection or marked swelling. IMPRESSION: Technically successful ultrasound-guided fine needle aspiration of right mid 6 cm thyroid nodule . PLAN: The patient was advised that I will provide follow-up regarding the cytology result and any subsequent plans. Lor Singer MD Endocrinology Attending Condition: stable Disposition: same day
== END 2024-12-27 08:49 | disposition home or self-care (01) ==
LOC: HO.US 08:48
PROVIDERS: PCP Internal Medicine; Visit Provider Student in an Organized Health Care Education/Training Program
DX: E04.1 Nontoxic single thyroid nodule (principal)
CPT/HCPCS: 10005; 88173; 88305

== ENCOUNTER → 2024-12-27 08:48 | Outpatient (BNV) | payer OTHER, SELFPAY | PROVIDERS: PCP Internal Medicine; Visit Provider Student in an Organized Health Care Education/Training Program | DX: E04.1 Nontoxic single thyroid nodule (principal) | CPT/HCPCS: 10005 ==

== ENCOUNTER 2025-01-10 14:05 | Outpatient (AMB) | payer OTHER, SELFPAY ==
[2025-01-10 14:11] VITALS: BP 108/68; PULSE 84; O2SAT 98; BMI 21.8
--- NOTE | 2025-01-10 14:11 | MHC.OFFVIS ---
Vital Signs 01/10/25 14:11 Height 4 ft 11 in Weight 108 lb 0.424 oz BMI 21.8 BP 108/68 Blood Pressure Location Rt brachial Position Sitting Pulse 84 Pulse Source Pulse Oximeter Pulse Oximetry (%) 98 Oxygen Delivery Method Room Air Intake Visit Reasons: Biopsy f/u Intake Note: Patient present today for biopsy results. Staff Nurse Required: No Accompanied by: Self / Same As Patient Allergies environmental allergies Allergy (Mild, Verified 01/10/25 14:13) Itchy watery eyes HPI Comments Details: 59-year-old female here today for follow up of large right thyroid nodule. Diagnosed when she was in her 40s she thinks. Was seeing an adjunct physical education instructor at [facility] 10 years ago. Had biopsy once , maybe 10 years ago , thinks it was benign. Ultrasound of the thyroid from September 2024 I reviewed the images myself, which showed a large asymmetrical right thyroid lobe, with a large right midpole 6 cm nodule which is solid, isoechoic, with a extrathyroidal extension and microcalcifications, TR 5 category. Per MAKEDA guidelines this is a highly suspicious nodule with greater than 50% chance of malignancy. Normal TSH from September 2024 at 1.26. Patient currently denies heat or cold intolerance, diarrhea or constipation, hair loss, palpitation, anxiety, weight changes, mood changes, low energy, changes in appearance of eyes or vision changes, tremors, increased diaphoresis or dry skin. ? Patient denies any difficulty swallowing, pain on swallowing or voice changes or difficulty breathing. Patient denies any history of childhood neck radiation. Denies having ever used lithium, amiodarone or biotin supplements. Patient denies any family history of thyroid cancer or thyroid disease. Interval history 12/27/2024: Underwent FNA of the right midpole 6 cm nodule which came back as nondiagnostic, [place] category 1. Physical exam General: sitting comfortably in no acute distress HEENT: normocephalic/atraumatic, Neck: supple, palpable 3 cm right-sided nodule Cardiac: normal heart sounds Pulm: normal breath sounds B/L, no added breath sounds Abd: not distended, no tenderness Extremities: no edema, no signs of myxedema Laboratory Tests 09/06/23 09/22/24 09:20 08:31 TSH 1.10 1.26 US THYROID 10/05/24 CLINICAL INFORMATION: Nontoxic goiter, unspecified. COMPARISON: None available. TECHNIQUE: Linear transducer grayscale and color Doppler examination with attention to the region of the thyroid. FINDINGS: SIZE: Measurements of the thyroid lobes and nodules are given in sagittal, anteroposterior and transverse dimensions respectively. Right Thyroid Lobe: 7.5 x 4.2 x 4.5 cm, volume 74.2 mL. Parenchyma: The gland echotexture is heterogeneous. Thyroid vascularity is increased. Left Thyroid Lobe: 4.6 x 1.2 x 1.2 cm, volume 35 mL. Parenchyma: The gland echotexture is homogeneous. Thyroid vascularity is increased. Isthmus: 0.1 cm in maximum AP dimension. Estimated total number of nodules greater than or equal to 1 cm: 1. Work Station Support Specialist nodules are described as follows: 1. Location: Right mid pole. Size: 6.0 x 4.1 x 5.1 cm, volume 65.4 mL. Nodule characteristics: Composition: Solid/almost completely solid (2). Echogenicity: Isoechoic (1). Shape: Not taller than wide (0). Margins: Extrathyroidal extension (3). Echogenic Foci: Macrocalcifications (1). Punctate echogenic foci (3). ACR TI-RADS total points: 10 ACR TI-RADS category: 5 NODES: No lymphadenopathy is seen in the tissue surrounding the thyroid gland. IMPRESSION: 1. A 6.0 cm RIGHT TR 5 thyroid nodule meets criteria for biopsy. Fine-needle aspiration recommended. 2. Diffusely hypervascular, enlarged thyroid gland. 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, exercise regularl Housing: House Patient Tobacco Use Status: Never used Tobacco e-Cigarette/Vaping Use: Never Used service: No Current occupational status: employed Cognitive needs: No Hearing needs: No Vision needs: Yes Physical Exam Vital Signs: Last Vital Signs Pulse 84 01/10/25 14:11 BP 108/68 01/10/25 14:11 Pulse Ox 98 01/10/25 14:11 Oxygen Delivery Method Room Air 01/10/25 14:11 BMI result Body Mass Index 21.8 Assessment & Plan Assessment & Plan (1) Thyroid nodule: Code(s): E04.1 - Nontoxic single thyroid nodule Category: Medical Plan: 59-year-old female with no family history of thyroid cancer, with no personal history of head or neck radiation who is coming in today for initial evaluation of right-sided thyroid nodule. Diagnosed when she was in her 40s she thinks. Was seeing an adjunct physical education instructor at [facility] 10 years ago. Had biopsy once , maybe 10 years ago , thinks it was benign. We would not be able to obtain these records given they were paper charts per patient. Ultrasound of the thyroid from September 2024 showed a large asymmetrical right thyroid lobe, with a large right midpole 6 cm nodule which is solid, isoechoic, with a extrathyroidal extension and microcalcifications, TR 5 category. Per MAKEDA guidelines this is a highly suspicious nodule with greater than 50% chance of malignancy. Normal TSH from September 2024 at 1.26. 12/27/2024: Underwent FNA of the right midpole 6 cm nodule which came back as nondiagnostic, [place] category 1. I discussed with her nondiagnostic results yield a 6-20% chance of malignancy. I also did discuss with the patient that when nodules are greater than 4 cm in size, because we can not capture cells from all parts of the nodule, the yield of a benign results suggesting low risk of malignancy goes down somewhat. I discussed with her that 1 potential option is to suggest lobectomy/total thyroidectomy given the large size of the nodule. She agrees that she does not have any compressive symptoms, and from what she remembers her surveillance ultrasounds only suggested minimal increase in the size of this nodule for the past 20 years, which are all reassuring and at this point she would like to proceed with the biopsy. We will arrange for repeat FNA of the right mid lobe 6 cm nodule in 3 months and patient will follow up with me in clinic thereafter for results and further decision making. Plan: -scheduled for repeat FNA of the right mid lobe 6 cm thyroid nodule in 3 months and a follow up 2 weeks after to discuss results Plan See above Orders: Orders US biopsy thyroid Today E04.1 - Nontoxic single thyroid nodule Patient Instructions: We will bring you back for a right sided thyroid biopsy in March 2025 and fup 2 weeks after to discuss results Coding Level of Care Code Est Pt Level 3 (14038) Diagnoses Thyroid nodule E04.1
== END 2025-01-10 14:36 | disposition home or self-care (01) ==
LOC: HO.ENCR 14:06
PROVIDERS: PCP Internal Medicine; Visit Provider Student in an Organized Health Care Education/Training Program
DX: E04.1 Nontoxic single thyroid nodule (principal)
CPT/HCPCS: 99213

== ENCOUNTER → 2025-01-10 14:05 | Outpatient (BNVA) | payer OTHER, SELFPAY | PROVIDERS: PCP Internal Medicine; Visit Provider Student in an Organized Health Care Education/Training Program ==

== ENCOUNTER 2025-03-21 10:53 | Outpatient (REF) | payer OTHER, SELFPAY ==
--- NOTE | 2025-03-21 11:25 | PM.PROC ---
Brief Operative Note Date of procedure: 03/14/25 Pre-op diagnosis: right mid pole 6 cm thyroid nodule FNA biopsy Post-op diagnosis: same Procedure: THYROID FINE NEEDLE ASPIRATION PROCEDURE NOTE ? PROCEDURE PERFORMED: Ultrasound-guided FNA of thyroid nodule ? OPERATORS: Dr. Lor Singer ? INDICATION: right mid pole 6 cm thyroid nodule; FNA performed to assess for malignancy ? DESCRIPTION OF PROCEDURE: The indications for FNA (to assess for malignancy) were reviewed with the patient in detail. Potential complications (e.g., bleeding, infection, damage to local structures, absence of clear diagnosis after FNA) were reviewed. Alternatives to FNA including conservative observation or surgery were described. The patient understood and agreed to proceed. This was documented by the signing of the written informed consent form. A time-out was performed to confirm the patient's identity and the site of planned FNA. The nodule of interest was identified using ultrasound (14 MHz linear array probe). The site of FNA was then draped in the usual fashion and carefully cleaned and prepared using alcohol swabs. The skin at the previously-identified site of needle insertion was iced and sprayed with numbing spray. Under ultrasound guidance, _5_ passes were performed using a 1.5-inch, 25-gauge needle, and sample was obtained via capillary action. The needle tip was clearly visualized to be within the nodule at the time of sampling for 5__ of 5__ passes The patient tolerated the procedure well. There were no immediate complications. A small adhesive bandage was applied, and the patient was advised to take acetaminophen (rather than NSAIDs) for any discomfort and to report any signs of inflammation/infection or marked swelling. IMPRESSION: Technically successful ultrasound-guided fine needle aspiration of right mid pole 6 cm thyroid nodule. PLAN: The patient was advised that I will provide follow-up regarding the cytology result and any subsequent plans. Lor Singer MD Endocrinology Attending Condition: stable Disposition: same day
== END 2025-03-21 10:54 | disposition home or self-care (01) ==
LOC: HO.US 10:53
PROVIDERS: PCP Internal Medicine; Visit Provider Student in an Organized Health Care Education/Training Program
DX: E04.1 Nontoxic single thyroid nodule (principal)
CPT/HCPCS: 10005; 88173; 88305

== ENCOUNTER → 2025-03-21 10:53 | Outpatient (BNV) | payer OTHER, SELFPAY | PROVIDERS: PCP Internal Medicine; Visit Provider Student in an Organized Health Care Education/Training Program | DX: E04.1 Nontoxic single thyroid nodule (principal) | CPT/HCPCS: 10005 ==

== ENCOUNTER 2025-04-03 11:11 | Outpatient (REF) | payer OTHER, SELFPAY ==
[2025-04-06 05:43] LABS: TS Negative Control Passed; TS Panel A 0; TS Panel B 0; TS Positive Control Passed; TSpotTB Negative (Negative)
== END 2025-04-03 11:12 | disposition home or self-care (01) ==
LOC: HO.HMGCLDS 11:11
PROVIDERS: PCP Internal Medicine; Visit Provider Internal Medicine
DX: Z11.1 Encounter for screening for respiratory tuberculosis (principal)
CPT/HCPCS: 36415; 86481

== ENCOUNTER 2025-04-04 13:57 | Outpatient (AMB) | payer OTHER, SELFPAY ==
--- NOTE | 2025-04-04 14:00 | A.OFFVIS_ITS ---
Vital Signs 3 04/04/25 14:01 Height 4 ft 11 in Weight 108 lb 3.951 oz BMI 21.9 BP 126/64 Blood Pressure Location Lt brachial Position Sitting Pulse 80 Pulse Source Pulse Oximeter Pulse Oximetry (%) 95 Oxygen Delivery Method Room Air Intake Visit Reasons: Biopsy f/u Intake Note: Patient present today for biopsy results. Gandy Dancer Required: No Accompanied by: Self / Same As Patient Allergies environmental allergies Allergy (Mild, Verified 04/04/25 14:12) Itchy watery eyes HPI Comments Details: 59-year-old female here today for follow up of large right thyroid nodule. HPI Diagnosed when she was in her 40s she thinks. Was seeing an bus attendant at [facility] 10 years ago. Had biopsy once , maybe 10 years ago , thinks it was benign. Ultrasound of the thyroid from September 2024 I reviewed the images myself, which showed a large asymmetrical right thyroid lobe, with a large right midpole 6 cm nodule which is solid, isoechoic, with a extrathyroidal extension and microcalcifications, TR 5 category. Per MAKEDA guidelines this is a highly suspicious nodule with greater than 50% chance of malignancy. Normal TSH from September 2024 at 1.26. Patient currently denies heat or cold intolerance, diarrhea or constipation, hair loss, palpitation, anxiety, weight changes, mood changes, low energy, changes in appearance of eyes or vision changes, tremors, increased diaphoresis or dry skin. ? Patient denies any difficulty swallowing, pain on swallowing or voice changes or difficulty breathing. Patient denies any history of childhood neck radiation. Denies having ever used lithium, amiodarone or biotin supplements. Patient denies any family history of thyroid cancer or thyroid disease. 12/27/2024: Underwent FNA of the right midpole 6 cm nodule which came back as nondiagnostic, [place] category 1. Interval history 03/21/2025: Underwent repeat FNA of the right midpole 6 cm nodule which came back as benign, [place] category 2. Physical exam General: sitting comfortably in no acute distress HEENT: normocephalic/atraumatic, Neck: supple, palpable 3 cm right-sided nodule Cardiac: normal heart sounds Pulm: normal breath sounds B/L, no added breath sounds Abd: not distended, no tenderness Extremities: no edema, no signs of myxedema Laboratory Tests 09/06/23 09/22/24 09:20 08:31 TSH 1.10 1.26 US THYROID 10/05/24 CLINICAL INFORMATION: Nontoxic goiter, unspecified. COMPARISON: None available. TECHNIQUE: Linear transducer grayscale and color Doppler examination with attention to the region of the thyroid. FINDINGS: SIZE: Measurements of the thyroid lobes and nodules are given in sagittal, anteroposterior and transverse dimensions respectively. Right Thyroid Lobe: 7.5 x 4.2 x 4.5 cm, volume 74.2 mL. Parenchyma: The gland echotexture is heterogeneous. Thyroid vascularity is increased. Left Thyroid Lobe: 4.6 x 1.2 x 1.2 cm, volume 35 mL. Parenchyma: The gland echotexture is homogeneous. Thyroid vascularity is increased. Isthmus: 0.1 cm in maximum AP dimension. Estimated total number of nodules greater than or equal to 1 cm: 1. Checking Department Supervisor nodules are described as follows: 1. Location: Right mid pole. Size: 6.0 x 4.1 x 5.1 cm, volume 65.4 mL. Nodule characteristics: Composition: Solid/almost completely solid (2). Echogenicity: Isoechoic (1). Shape: Not taller than wide (0). Margins: Extrathyroidal extension (3). Echogenic Foci: Macrocalcifications (1). Punctate echogenic foci (3). ACR TI-RADS total points: 10 ACR TI-RADS category: 5 NODES: No lymphadenopathy is seen in the tissue surrounding the thyroid gland. IMPRESSION: 1. A 6.0 cm RIGHT TR 5 thyroid nodule meets criteria for biopsy. Fine-needle aspiration recommended. 2. Diffusely hypervascular, enlarged thyroid gland. 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 Housing: House Patient Tobacco Use Status: Never used Tobacco e-Cigarette/Vaping Use: Never Used service: No Current occupational status: employed Cognitive needs: No Hearing needs: No Vision needs: Yes Physical Exam Vital Signs: Last Vital Signs Pulse 80 04/04/25 14:01 BP 126/64 04/04/25 14:01 Pulse Ox 95 04/04/25 14:01 Oxygen Delivery Method Room Air 04/04/25 14:01 BMI result Body Mass Index 21.9 Assessment & Plan Assessment & Plan (1) Thyroid nodule: Code(s): E04.1 - Nontoxic single thyroid nodule Category: Medical Plan: 59-year-old female with no family history of thyroid cancer, with no personal history of head or neck radiation who is coming in today for initial evaluation of right-sided thyroid nodule. Diagnosed when she was in her 40s she thinks. Was seeing an bus attendant at [facility] 10 years ago. Had biopsy once , maybe 10 years ago , thinks it was benign. We would not be able to obtain these records given they were paper charts per patient. Ultrasound of the thyroid from September 2024 showed a large asymmetrical right thyroid lobe, with a large right midpole 6 cm nodule which is solid, isoechoic, with a extrathyroidal extension and microcalcifications, TR 5 category. Per MAKEDA guidelines this is a highly suspicious nodule with greater than 50% chance of malignancy. Normal TSH from September 2024 at 1.26. 12/27/2024: Underwent FNA of the right midpole 6 cm nodule which came back as nondiagnostic, [place] category 1. I discussed with her nondiagnostic results yield a 6-20% chance of malignancy. 03/21/2025: Underwent repeat FNA of the right midpole 6 cm nodule which came back as benign, [place] category 2. I discussed with the patient that when nodules are greater than 4 cm in size, because we can not capture cells from all parts of the nodule, the yield of a benign results suggesting low risk of malignancy goes down somewhat. I discussed with her that 1 potential option is to suggest lobectomy/total thyroidectomy given the large size of the nodule. While she does not have any compressive symptoms, and from what she remembers her surveillance ultrasounds only suggested minimal increase in the size of this nodule for the past 20 years, at this time she would like to speak with a surgeon for surgical evaluation and see what her options are. We will refer her to Dr. Valentin Cadet at [facility]. If after she has her appointment with surgery, it is decided that she is not having surgery, we will plan to do an ultrasound in February 2026 with follow up in March 2026. For now I will put her in for a follow up in 4 months. Plan: -referring to Dr. Valentin Cadet at [facility] for evaluation for left lobectomy Plan See above Orders: Referrals 2 General Surgery Referral E04.1 - Nontoxic single thyroid nodule Patient Instructions: We will refer you to Dr. Valentin Cadet at [facility] in [place] for surgical evaluation Coding Level of Care Code Est Pt Level 3 (03756) Diagnoses Thyroid nodule E04.1
[2025-04-04 14:01] VITALS: BP 126/64; PULSE 80; O2SAT 95; BMI 21.9
== END 2025-04-04 14:36 | disposition home or self-care (01) ==
LOC: HO.ENCR 13:58
PROVIDERS: PCP Internal Medicine; Visit Provider Student in an Organized Health Care Education/Training Program
DX: E04.1 Nontoxic single thyroid nodule (principal)
CPT/HCPCS: 99213

== ENCOUNTER → 2025-04-04 13:57 | Outpatient (BNVA) | payer OTHER, SELFPAY | PROVIDERS: PCP Internal Medicine; Visit Provider Student in an Organized Health Care Education/Training Program ==

== ENCOUNTER 2025-06-07 13:16 | Outpatient (REF) | payer OTHER, SELFPAY ==
--- OUTSIDE RECORDS SUMMARY | 2025-06-07 13:27 | XMS_ITS | Clinical Summary ---
Author Organization [facility] Address [address] [address] Phone Care Team Providers Care Pit Recorder Name Role Phone Alia Salazar MD Primary Care Provider [phone] Allergies No known active allergies Medications estradioL (VIVELLE-DOT) 0.05 mg/[address] 1 patch onto the skin. 12/28/2024 Active progesterone (PROMETRIUM) 100 mg capsuleIndicatio ns:Hormone replacement therapy Take 1 capsule (100 mg total) by mouth daily. 90 capsule 3 02/19/2025 Active Active Problems No known active problems Social History Tobacco Use Types Packs/Day Years Used Date Smoking Tobacco: Never Passive Smoke Exposure: Never Smokeless Tobacco: Never Tobacco Cessation:Counseling Given: Not Answered Alcohol Use Standard Drinks/Week Comments Never 0 (1 standard drink = 0.6 oz pur e alcohol) Education Answer Date Recorded Are you interested in more education? Not on neymar e 12/20/2024 Are you concerned about learning? Not on file 12/20/2024 No 12/20/2024 No 12/20/2024 Digital Access Answer Date Recorded No 12/20/2024 No 12/20/2024 Reliable internet access at home? Not on file 12/20/2024 Device with a working camera? Not on file Comments No Sex and Gender Information Value Date Recorded Sex Assigned at Not on file Legal Sex Female 12:46 PM EDT Gender Identity Not on file Sexual Orientation Not on file Last Filed Vital Signs Vital Sign Reading Time Taken Comments Blood Pressure 110/74 02/19/2025 11:05 AM EDT Pulse - - Temperature - - Respiratory Rate - - Oxygen Saturation - - Inhaled Oxygen Concentration - - Weight 49.4 kg (109 lb) 02/19/2025 11:05 AM EDT Height 148.6 cm (4' 10.5 ) 02/19/2025 11:05 AM E DT Body Mass Index 22.39 02/19/2025 11:05 AM EDT Plan of Treatment Health Maintenance Due Date Last Done Comments LIPID PANEL 1965 DEPRESSION SCREENING 1977 HEPATITIS C SCREENING 1983 HIV ONE-TIME SCREENING (18-65 YEARS) 1983 PAP SMEAR 1986 MAMMOGRAM 2005 COLOGUARD 2010 COLONOSCOPY 2010 COLORECTAL CANCER SCREENING 2010 FIT TEST 2010 FOBT 2010 SIGMOIDOSCOPY 2010 VIRTUAL COLONOSCOPY 2010 PNEUMOCOCCAL VACCINES (50+ years) (1 of 1 - PCV) 2015 COVID-19 VACCINE (5 - season) 2024 10/23/2022, 07/14/2021, 12/13/2020, Additional history exists ZOSTER VACCINES (2 of 2) 02/23/2025 12/29/2024 Adult Td,Tdap Booster 12/09/2027 12/09/2017, 017 SMOKING STATUS SCREENING (Once After 26 Yrs) Completed 02/19/2025 HEPATITIS A VACCINES Aged Out No long er eligible based on patient's age to complete this topic HIB VACCINES Aged Out No longer eligi ble based on patient's age to complete this topic MENINGOCOCCAL VACCINES (ACWY) Aged Out No longer eligible based on patient's age to complete this topic MENINGOCOCCAL VACCINES (B) Aged Out N o longer eligible based on patient's age to complete this topic Medical Devices Not on file Insurance [facility] [address] [place] [address] [place] [address] [facility] Member Subscriber Plan / Payer (Ef fective 2024-Present) Name:Dionna Butler Relation to Subscriber:Self Name:Dionna Butler Payer ID:Not on file Type:HMO Address: [place] [id number] Care Teams Pit Recorder Relationship Specialty Start Date End Date Alia Salazar MD [address] [place] [id number] PCP - General Internal Medicine 07/11/24 Additional Source Comments The information contained in this document represents components of the legal health record. It is not the complete legal health record.[facility]
--- OUTSIDE RECORDS SUMMARY | 2025-06-07 13:27 | XMS_ITS | Clinical Summary ---
Author Organization [address] Address [address] [place] [id number] Phone Care Team Providers Care Laundromat Worker Name Role Phone Alia Salazar MD Primary Care Provider [phone] Allergies Active Allergy Reactions Criticality Noted Date Comments Pollen Extracts 04/25/2025 Medications ascorbic acid (VITAMIN C) 250 mg tablet Take 1 tablet (250 mg total) by mouth 1 (one) time each day. Active calcium carbonate 160 mg calcium (400 mg) tablet,chewable Chew. Acti ve estradioL (CLIMARA) 0.1 mg/[address] 1 patch on the skin 1 (one) time per week. Active MAGNESIUM CITRATE ORAL Take by mouth. Active multivit-min/enid loc fumarate (MULTI VITAMIN ORAL) Take by mouth. Active PROGESTERONE MICRONIZED ORAL Take by mouth. Active RHUBARB ROOT EXTRACT ORAL Take by mouth. Active vitamin B comp and C no.3 [id number] mg capsule Take by mouth. Active Encounters Date Type Department Care Team Description 04/25/2025 Telephone Gastroenterology - [address] [place] [phone] Alia Aguirre MD from Last 3 Months Social History Tobacco Use Types Packs/Day Years Used Date Smoking Tobacco: Never Assessed Comments Unknown Sex and Gender Information Value Date Recorded Sex Assigned at Not on file Legal Sex Female 11:29 AM EST Gender Identity Not on file Sexual Orientation Not on file Plan of Treatment Health Maintenance Due Date Last Done Comments Breast Cancer Screening 1965 DTaP,Tdap,and Td Vaccines (1 - Tdap) 1984 Hepatitis B Vaccines (1 of 3 - 19+ 3-dose series) 1984 Cervical Cancer Screening: P ap Smear 1986 Pneumococcal Vaccine: 50+ Ye ars (1 of 1 - PCV) 2015 Zoster Vaccines (1 of 2) 2015 COVID-19 Vaccine ( - 2023-2 5 season) 2024 Depression Screening 10/18/2024 Colorectal Cancer Screening: Colonoscopy 04/25/2025 HIV Screening 04/25/2025 Hepatitis C Screening 04/25/2025 Social Influencers of Health Screening 04/25/2025 Influenza Vaccine (#1) 2025 RSV Immunization Adult Patie nts (1 - 1-dose 75+ series) 2040 HIB Vaccines Aged Out No longer eligi ble based on patient's age to complete this topic HPV Vaccines Aged Out No longer eligi ble based on patient's age to complete this topic Hepatitis A Vaccines Aged Out No long er eligible based on patient's age to complete this topic IPV Vaccines Aged Out No longer eligi ble based on patient's age to complete this topic MMR Vaccines Aged Out No longer eligi ble based on patient's age to complete this topic Meningococcal ACWY Vaccine Aged Out N o longer eligible based on patient's age to complete this topic Meningococcal B Vaccine Aged Out No l onger eligible based on patient's age to complete this topic RSV Immunization Patients Un reny 20 months Aged Out No longer eligible b ased on patient's age to complete this topic Varicella Vaccines Aged Out No longer eligible based on patient's age to complete this topic Insurance [facility] Care Teams Laundromat Worker Relationship Specialty Start Date End Date Alia Salazar MD PCP - General Internal Medicine 04/25/25
== END 2025-06-07 13:17 | disposition home or self-care (01) ==
LOC: HO.MAMMO 13:16
PROVIDERS: Visit Provider Internal Medicine
DX: Z12.31 Encounter for screening mammogram for malignant neoplasm of breast (principal)
CPT/HCPCS: 77063; 77067

== ENCOUNTER → 2025-06-07 13:30 | Outpatient (BNV) | payer OTHER, SELFPAY | PROVIDERS: Visit Provider Internal Medicine | DX: Z12.31 Encounter for screening mammogram for malignant neoplasm of breast (principal) | CPT/HCPCS: 77063; 77067 ==

== ENCOUNTER 2025-10-01 11:50 | Outpatient (AMB) | payer OTHER, SELFPAY ==
--- NOTE | 2025-10-01 11:54 | A.OFFPC_ITS ---
Vital Signs 10/01/25 12:01 Height 4 ft 11 in Weight 107 lb BMI 21.6 BP 118/76 Blood Pressure Location Rt brachial Position Sitting Pulse 89 Pulse Source Pulse Oximeter Temp 98.7 F Temp Source Oral Pulse Oximetry (%) 98 Oxygen Delivery Method Room Air Intake Visit Reasons: Annual PE Intake Note: Pt is here today for PE. Allergies environmental allergies Allergy (Mild, Verified 10/01/25 12:01) Itchy watery eyes Medication List - Last Reconciled 10/01/25 by Alia Salazar MD ascorbic acid (vitamin C) 250 mg PO DAILY estradiol 1 patch transdermal 2XW multivitamin 1 tab PO DAILY progesterone micronized 100 mg PO BEDTIME rhubarb root extract (Estroven Complete Menopause Relief) mg PO vitamin B comp and C no.3 1 cap PO DAILY Tobacco use date assessed: 10/01/25 Dental Screening Dental Screen Date: 10/01/25 Did you have a dental visit in the last 12 months?: Yes Did you have a dental problem in the last 6 months where you did not have access to dental care?: No Was dental information given to patient?: Patient has dentist HPI Annual PE HPI Details Patient presents for physical. She had an episode of postmenopausal bleeding and is scheduled to have endometrial biopsy next month. Patient was evaluated by thyroid surgeon and will have thyroidectomy in November for 5 cm benign nodule. 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 1. Little interest or pleasure in doing things: not at all 2. Feeling down, depressed, or hopeless: not at all 3. Trouble falling or staying asleep, or sleeping too much: not at all 4. Feeling tired or having little energy: not at all 5. Poor appetite or overeating: not at all 6. Feeling bad about yourself - or that you are a failure or have let yourself or your family down: not at all 7. Trouble concentrating on things, such as reading the newspaper or watching television: not at all 8. Moving or speaking so slowly that other people could have noticed. Or the opposite - being so fidgety or restless that you have been moving around a lot m ore than usual: not at all 9. Thoughts that you would be better off or of hurting yourself in some way: not at all Total score: 0 Depression Screening Interpretation: Negative Depression Screening Done: Yes 56192 - PHQ-9 Billing: Yes Source: Developed by Drs. David Blue, Janay Rosas, Casa Poe and colleagues, with an educational radha from [employer]. Thrive Questionnaire Date Thrive assessed: 10/01/25 I am a: Patient What is your living situation today?: I have a steady place to live Within the past 12 months, did the food you bought not last and you didn't have the money to get more?: Never true Within the past 12 months, did you worry whether your food would run out before you got money to buy more?: Never true Do you have trouble paying for medicines?: No Do you have trouble getting transportation to medical appointments?: No Do you have trouble paying your heating and electricity bill?: No Do you have trouble taking care of your child, family member or friend?: No Do you have trouble with day-to-day activities such as bathing, preparing meals, shopping, managing finances, etc.?: No Are you currently unemployed and looking for a job?: No Are you interested in more education?: No Please select the resources that you would like help with: None Currently or been in a relationship where the following occur: No concerns reported THRIVE Score: 0 AUDIT C Alcohol Use Questionnaire (AUDIT-C) 1. How often do you have a drink containing alcohol?: Never 3. How often do you have six or more drinks on one occasion?: Never Total Score: 0 SHAE-7 AMB Questionnaire SHAE-7 Date SHAE - 7 assessed: 10/01/25 Feeling nervous, anxious, or on edge: 0 = Not at all Not being able to stop or control worryin = Not at all Worrying too much about different things: 0 = Not at all Trouble relaxin = Not at all Being so restless that it is hard to sit still: 0 = Not at all Becoming easily annoyed or irritable: 0 = Not at all Feeling afraid as if something awful might happen: 0 = Not at all Total SHAE-7 score (0-4 normal; 5-9 mild; 10-14 moderate; 15-21 severe): 0 Source: Developed by Drs. David Blue, Janay Rosas, Casa Poe and colleagues, with an educational radha from [employer]. SHAE-7 Assessment Billing SHAE-7 Assessment Tool: SHAE-7 Assessment 83765 Review of Systems Const All systems reviewed & are unremarkable except as noted in HPI and below Eyes Reports no additional complaints ENT Reports no additional complaints Card Reports no additional complaints Resp Reports no additional complaints GI Reports no additional complaints Reports no additional complaints Physical exam (Primary Care) Vital Signs: Last Vital Signs Temp 98.7 F 10/01/25 12:01 Pulse 89 10/01/25 12:01 BP 118/76 10/01/25 12:01 Pulse Ox 98 10/01/25 12:01 Oxygen Delivery Method Room Air 10/01/25 12:01 BMI result Body Mass Index 21.6 Tobacco/Smoking Status: Tobacco use Status Tobacco use date assessed 10/01/25 10/01/25 12:02 Patient Tobacco Use Status Never used Tobacco 10/01/25 12:02 e-Cigarette/Vaping Use Never Used 10/01/25 11:54 PHQ-9: PHQ-9 Score PHQ-9: Total score 0 10/01/25 12:02 Depression Screening Interpretation: Negative Thrive Assessment: Date of Thrive Assessment Date Thrive assessed 10/01/25 10/01/25 12:02 Currently or been in a relationship where the following occur: No concerns reported Const General: no acute distress HENMT Head: Yes normal to inspection Ears: TM's normal bilaterally Mouth: Normal oral and palatal mucosa present Throat: Yes posterior oropharynx normal Eyes General: appearance normal, both eyes and all related structures Neck Neck: Yes no lymphadenopathy and Yes supple Resp Effort & Inspection: normal respiratory effort Auscultation: clear to auscultation bilaterally Cardio Rhythm: regular rhythm Heart sounds: S1 normal heart sound present and S2 normal heart sound present GI Inspection: Yes normal to inspection Palpation (GI): Soft to palpation Percussion: Yes normal to percussion Auscultation: normal bowel sounds Coding Level of Care Code Est Pt Prev Care 40-64y(09381) Diagnoses Annual physical exam Z00.00 Additional Codes SHAE-7 Assessment Billing - SHAE-7 Assessment Tool: SHAE-7 Assessment 29310 ([id number]) PHQ-9 - 92915 - PHQ-9 Billing: Yes ([id number]) Assessment & Plan Assessment & Plan (1) Annual physical exam: Code(s): Z00.00 - Encounter for general adult medical examination without abnormal findings Category: Medical Plan: Well-balanced diet regular physical activity discussed with the patient she is up-to-date with the mammogram will have colonoscopy next March. 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 Estradiol patch will be decreased to 0.025 twice a week. Follow-up in 3 months Medications: New estradiol (Vivelle-Dot) apply 1 patch for 3 days alternating with 1 patch for 4 days each week 1 patch transdermal 2XW 8 ea 2RF Discontinued estradiol apply 1 patch for 3 days alternating with 1 patch for 4 days each week for 3 wks per 4-wk cycle Discontinued Reason: Doctor's Order 1 patch transdermal 2XW 24 ea 3RF
[2025-10-01 12:01] VITALS: BP 118/76; PULSE 89; TEMP 37.1; O2SAT 98; BMI 21.6
== END 2025-10-01 12:57 | disposition home or self-care (01) ==
LOC: HO.HMCC 11:50
PROVIDERS: PCP Internal Medicine; Visit Provider Internal Medicine
DX: Z00.00 Encounter for general adult medical examination without abnormal findings (principal)

== ENCOUNTER → 2025-10-01 11:50 | Outpatient (BNVA) | payer OTHER, SELFPAY | PROVIDERS: PCP Internal Medicine; Visit Provider Internal Medicine | DX: Z00.00 Encounter for general adult medical examination without abnormal findings (principal) | CPT/HCPCS: 96127 ==

== ENCOUNTER 2025-10-04 08:05 | Outpatient (REF) | payer OTHER, SELFPAY ==
--- OUTSIDE RECORDS SUMMARY | 2025-10-04 08:10 | XMS_ITS | Clinical Summary ---
Author Organization [facility] [address] [facility] Address [address] [place] [address] Phone Care Team Providers Care Flatwork Ironer Name Role Phone Alia Salazar MD Primary Care Provider [phone] Allergies Active Allergy Reactions Criticality Noted Date [...] Active vitamin B comp and C no.3 01-51-24-5-300 mg capsule Take by mouth. Active Social History Tobacco Use Types Packs/Day Years Used Date Smoking Tobacco: Never Assessed Comments Unknown Sex and Gender Information Value Date Recorded Sex Assigned at Not on file Legal Sex Female 11:29 AM EST Gender Identity Not on file Sexual Orientation Not on file Plan of Treatment Health Maintenance Due Date Last Done Comments Breast Cancer Screening 1965 Colorectal Cancer Screening: Colonoscopy 1965 DTaP,Tdap,and Td Vaccines (1 - Tdap) 1984 Cervical Cancer Screening: P ap Smear 1986 Pneumococcal Vaccine: 50+ Ye ars (1 of 1 - PCV) 2015 Zoster Vaccines (1 of 2) 2015 Depression Screening 10/18/2024 HIV Screening 04/25/2025 Hepatitis C Screening 04/25/2025 Social Influencers of Health Screening 04/25/2025 COVID-19 Vaccine (1 - 2024-2 6 season) 2025 Influenza Vaccine (#1) 2025 RSV Immunization Adult [...] patient's age to complete this topic Hepatitis B Vaccines Aged Out No long er eligible [...] patient's age to complete this topic Insurance [facility] Care Teams Flatwork Ironer Relationship Specialty Start Date End Date Alia Salazar MD PCP - General Internal Medicine 04/25/25
[2025-10-04 10:25] LABS: MANUAL DIFF FLAG NO
[2025-10-04 10:38] LABS: Hematocrit 44.9 % (37.0-47.0); Hemoglobin 14.8 g/dl (12.0-16.0); Imm Gran Abs Auto 0.04 X10*3/uL (0.00-0.03); Imm Gran Pct Auto 0.5 % (0.0-0.4); Lymphocytes Absolute Auto 2.1 X10*3/uL (1.2-4.9); Mean Corpuscular HGB Conc 33.0 g/dl (31.0-35.0); Mean Corpuscular Hemoglobin 31.0 pg (27.0-33.0); Mean Corpuscular Volume 93.9 fL (80.0-98.0); NRBC Abs Auto 0.000 X10*3/uL (0.0-0.012); NRBC Pct Auto 0.0 /100WBC (0.0-0.2); Platelet Count 179 X10*3/uL (160-400); Red Blood Count 4.78 X10*6/uL (4.20-5.50); White Blood Count 7.7 X10*3/uL (4.8-10.8)
[2025-10-04 11:05] LABS: Alanine Aminotransferase 27 U/L (0-31); Albumin Level 4.1 g/dL (3.5-5.0); Alkaline Phosphatase 62 U/L (39-117); Anion Gap 10 (12-20); Aspartate Amino Transferase 28 U/L (5-31); Blood Urea Nitrogen 13 mg/dL (9-16); Calcium 8.6 mg/dL (8.4-10.2); Carbon Dioxide 28 mmol/L (22-29); Chloride 107 mmol/L (96-108); Cholesterol 146 mg/dL (<200); Estimated Glomerular Filt Rate > 60; HDL Cholesterol 46 mg/dL (>40); Potassium 4.0 mmol/L (3.3-5.1); Sodium 141 mmol/L (135-145); Total Protein 6.4 g/dL (6.5-8.0); Triglycerides 87 mg/dL (<150)
== END 2025-10-04 08:06 | disposition home or self-care (01) ==
LOC: HO.HMGCLDS 08:05
PROVIDERS: PCP Internal Medicine; Visit Provider Internal Medicine
DX: Z00.00 Encounter for general adult medical examination without abnormal findings (principal); E04.9 Nontoxic goiter, unspecified; Z78.0 Asymptomatic menopausal state; Z13.21 Encounter for screening for nutritional disorder; Z13.6 Encounter for screening for cardiovascular disorders
CPT/HCPCS: 36415; 80053; 80061; 82306; 84443; 85025